=== PATIENT | female | born 1950 | race Hispanic/Latino ===

== ENCOUNTER → 2017-10-29 | Outpatient (CLI) | payer OTHER | LOC: OIH 15:35 | PROVIDERS: ATTEND Family Medicine | DX: M25.521 Pain in right elbow (principal); Z91.81 History of falling | CPT/HCPCS: 73070 ==

== ENCOUNTER → 2018-07-15 | Outpatient (CLI) | payer OTHER | END | disposition home or self-care (01) | LOC: OIH 08:18 | PROVIDERS: ATTEND Family Medicine | DX: I10 Essential (primary) hypertension (principal) | CPT/HCPCS: 71046 ==

== ENCOUNTER → 2019-04-27 | Outpatient (CLI) | payer OTHER | END | disposition home or self-care (01) | LOC: RAH 08:55 | PROVIDERS: ATTEND Family Medicine | DX: N28.1 Cyst of kidney, acquired (principal) | CPT/HCPCS: 76700 ==

== ENCOUNTER → 2019-05-25 | Outpatient (CLI) | payer OTHER ==
[~2019-05-25] MED LIST: IOHEXOL-350 75 ML VIAL IV ONE
== END | disposition home or self-care (01) ==
LOC: RAH 08:06
PROVIDERS: ATTEND Family Medicine
DX: N28.1 Cyst of kidney, acquired (principal); N28.89 Other specified disorders of kidney and ureter; K59.00 Constipation, unspecified; M47.815 Spondylosis without myelopathy or radiculopathy, thoracolumbar region
CPT/HCPCS: 74170; Q9967

== ENCOUNTER → 2020-01-25 | Outpatient (CLI) | payer OTHER | END | disposition home or self-care (01) | LOC: RAH 10:43 | PROVIDERS: ATTEND Family Medicine | DX: I70.202 Unspecified atherosclerosis of native arteries of extremities, left leg (principal) | CPT/HCPCS: 93925 ==

== ENCOUNTER → 2020-02-15 | Outpatient (CLI) | payer OTHER | END | disposition home or self-care (01) | LOC: RAH 10:26 | PROVIDERS: ATTEND Internal Medicine Gastroenterology | DX: R10.13 Epigastric pain (principal); R11.0 Nausea | CPT/HCPCS: 78264; A9541 ==

== ENCOUNTER → 2020-07-28 | Outpatient (CLI) | payer OTHER, MEDICARE ==
[~2020-07-28] MED LIST changes: +IOHEXOL-350 50ML VIAL IV ONE; -IOHEXOL-350 75 ML VIAL IV ONE
== END | disposition home or self-care (01) ==
LOC: RAH 10:07
PROVIDERS: ATTEND Family Medicine
DX: G31.89 Other specified degenerative diseases of nervous system (principal); I70.0 Atherosclerosis of aorta; M51.35 Other intervertebral disc degeneration, thoracolumbar region
CPT/HCPCS: 70470; 71046; Q9967

== ENCOUNTER 2021-10-09 05:48 | Observation (INO) | payer OTHER, MEDICARE ==
[2021-10-05 09:20] VITALS: BP 139/77
[2021-10-05 09:40] LABS: BASOPHILS % (AUTO) 0.6 % (0.0-5.0); LYMPHOCYTES % (AUTO) 29.9 % (21.0-51.0); MEAN CORPUSCULAR HEMOGLOBIN 31.8 pg (27.0-33.0); MEAN CORPUSCULAR HGB CONC 32.3 g/dL (32.0-36.0); MEAN CORPUSCULAR VOLUME 98.7 fL (79-99); MONOCYTES % (AUTO) 6.9 % (3.0-13.0); NEUTROPHILS % (AUTO) 57.2 % (40.0-77.0); PLATELET COUNT (AUTO) 185 K/uL (130-400); RED BLOOD CELL COUNT(AUTO) 4.46 MIL/uL (4.00-5.50); RED CELL DISTRIBUTION WIDTH 13.3 % (11.0-15.5)
[2021-10-05 09:46] LABS: CREATININE 0.7 mg/dL (0.5-1.5); POTASSIUM 4.3 mmol/L (3.5-5.1)
[2021-10-05 09:50] LABS: INR 1.06 (0.85-1.15); PROTHROMBIN TIME 11.5 SEC (9.6-11.6)
[2021-10-05 10:02] LABS: APPEARANCE,URINE CLEAR (CLEAR); BILIRUBIN,URINE NEGATIVE (NEGATIVE); COLOR,URINE YELLOW (YELLOW); GLUCOSE, URINE (UA) NEGATIVE (NEGATIVE); KETONES,URINE NEGATIVE (NEGATIVE); LEUKOCYTE ESTERASE ,URINE TRACE (NEGATIVE); NITRATE,URINE NEGATIVE (NEGATIVE); OCCULT BLOOD,URINE NEGATIVE (NEGATIVE); PH,URINE 5.5 (5.0-8.0); PROTEIN,URINE NEGATIVE (NEGATIVE); UROBILINOGEN,URINE 0.2 mg/dL (0.2-1.0)
[2021-10-05 10:06] LABS: BACTERIA,URINE Rare /HPF (None Seen); RBC,URINE 0-1 /HPF (0-1); WBC,URINE None Seen /HPF (0-1)
[2021-10-05 10:07] LABS: SQUAMOUS EPITHELIAL CELL,UR Few /HPF (0-2)
[2021-10-09] VITALS (23 sets, daily range): BP systolic 98–174; BP diastolic 55–92
[~2021-10-09] VITALS: Ht 149.9 cm; Wt 93.4 kg
[~2021-10-09 05:48] MED LIST changes: +ALBU8.5H8 IH; +BUTA-256 PO; +DICY20TA3 PO; +ESOM40CA54 PO; +FAMO20TA8 PO; +GABA-529 PO; +HYDR-4068 PO; -IOHEXOL-350 50ML VIAL IV ONE; +LORA0.5T83 PO; +LOSA50TA64 PO; +MECL-160 PO; +MELO7.5T12 PO; +MIRT-92 PO; +QUET50TA24 PO; +SUCR1TAB2 PO; +VENL-191 PO
[2021-10-09] MEDS ORDERED: LACTATED RINGERS 1000ML 1,000 ML IV ONE (06:21)
[2021-10-09] MEDS: CEFAZOLIN SODIUM 1 GM VIAL ONE ×2 (07:02→09:00)
[2021-10-09] MEDS ORDERED: EPHEDRINE SULFATE 50 MG/ML AMPULE ONE (07:38)
[2021-10-09] MEDS ORDERED: ONDANSETRON 4MG INJ ONE (07:38)
[2021-10-09] MEDS ORDERED: ROCURONIUM 10MG/1ML SYR 10 MG/ML ML ONE (07:39)
[2021-10-09] MEDS ORDERED: PROPOFOL 10 MG/ML 20ML VIAL IV ONE (07:39)
[2021-10-09] MEDS ORDERED: FENTANYL CITRATE PF 50 MCG/1 ML 5ML AMP IV ONE (07:41)
[2021-10-09] MEDS ORDERED: PHENYLEPHRINE HCL 10 MG/ML 1ML VIAL IV ONE (07:44)
[2021-10-09] MEDS ORDERED: TRANEXAMIC ACID 1000MG/10ML ONE ×2 (08:28→12:16)
[2021-10-09] MEDS ORDERED: CEFAZOLIN SODIUM 1 GM VIAL ONE (08:29)
[2021-10-09] MEDS ORDERED: FAMOTIDINE 20MG VIAL IV ONE (08:31)
[2021-10-09] MEDS ORDERED: NEOSTIGMINE 5MG/5ML SYR IV ONE (09:56)
[2021-10-09] MEDS ORDERED: GLYCOPYRROLATE 1 MG/5 ML SYRINGE ONE (09:56)
[2021-10-09] MEDS ORDERED: HYDRALAZINE 20MG/ML VIAL IV SCH (11:00)
[2021-10-09] MEDS: ACETAMINOPHEN 500 MG TABLET PO SCH ×2 (11:30→20:12)
[2021-10-09] MEDS ORDERED: TEMAZEPAM 15 MG CAPSULE PO PRN (11:30)
[2021-10-09] MEDS ORDERED: CALCIUM CARB 500MG PO PRN (11:30)
[2021-10-09] MEDS ORDERED: LIDOCAINE HCL-MPF 1% 2ML VIAL IV PRN (11:30)
[2021-10-09] MEDS ORDERED: DiphenhydrAMINE HCL 50 MG/ML VIAL IVP PRN (11:30)
[2021-10-09] MEDS ORDERED: POTASSIUM CHLORIDE 20MEQ/100ML 100 ML IV PRN (11:30)
[2021-10-09] MEDS ORDERED: ONDANSETRON 4MG INJ IVP PRN (11:30)
[2021-10-09] MEDS ORDERED: FERROUS FUMARATE 324 MG TABLET PO PRN (11:30)
[2021-10-09] MEDS ORDERED: POTASSIUM CHLORIDE 10% ELIXIR 20 MEQ/15 ML UDCUP PO PRN (11:30)
[2021-10-09] MEDS: 0.9%NACL 1000ML 1,000 ML IV SCH ×2 (11:30→21:30)
[2021-10-09] MEDS ORDERED: TRAMADOL HCL 50 MG TABLET PO PRN (11:30)
[2021-10-09] MEDS ORDERED: SUGAMMADEX SODIUM 200 MG/2 ML VIAL IV ONE (12:05)
[2021-10-09] MEDS ORDERED: FENTANYL CITRATE PF 50 MCG/1 ML 2ML VIAL ONE (12:05)
[2021-10-09] MEDS ORDERED: MORPHINE 2 MG SYG ONE (12:34)
[2021-10-09] MEDS ORDERED: IPRATROPIUM/ALBUTEROL SULFATE 3 ML SOLUTION IH ONE (12:35)
[2021-10-09] MEDS ORDERED: HYDROMORPHONE 1 MG INJ ONE (12:42)
[2021-10-09] MEDS ORDERED: ROPIVACAINE 0.5% 5MG/ML 30ML IJ ONE (12:55)
[2021-10-09] MEDS ORDERED: DEXAMETHASONE SOD PHOSPHATE 10MG/ML 1ML VIAL ONE (12:57)
[2021-10-09] MEDS: DICYCLOMINE HCL 20 MG TAB PO SCH ×2 (14:00→20:11)
[2021-10-09] MEDS ORDERED: LORAZEPAM 0.5 MG TABLET PO PRN (14:00)
[2021-10-09] MEDS ORDERED: MECLIZINE HCL 25 MG TABLET PO PRN (14:00)
[2021-10-09] MEDS ORDERED: ALBUTEROL INHALER 90MCG/INH IH PRN (14:30)
[2021-10-09] MEDS: CEFAZOLIN SODIUM 1 GM VIAL IVP SCH (16:14)
[2021-10-09] MEDS: OXYCODONE HCL 5 MG TAB PO PRN (18:02)
[2021-10-09] MEDS: FAMOTIDINE 20MG TAB PO SCH (20:11)
[2021-10-09] MEDS: MIRTAZAPINE 15 MG TABLET PO SCH (20:11)
[2021-10-09] MEDS: SUCRALFATE 1 GM TABLET PO SCH (20:11)
[2021-10-09] MEDS: QUETIAPINE FUMARATE 25 MG TAB PO SCH (20:11)
[2021-10-09] MEDS: CELECOXIB 200 MG CAP PO SCH (20:12)
[2021-10-09] MEDS: ASPIRIN 81 MG EC TAB PO SCH (20:12)
[2021-10-09] MEDS: GABAPENTIN 100 MG CAPSULE PO SCH (20:12)
[2021-10-09] MEDS ORDERED: VENLAFAXINE HCL 75 MG TAB PO SCH (21:00)
[2021-10-10] MEDS: CEFAZOLIN SODIUM 1 GM VIAL IVP SCH (00:06)
[2021-10-10 03:57] LABS: HEMATOCRIT 33.3 % (36-48); MEAN CORPUSCULAR HEMOGLOBIN 32.3 pg (27.0-33.0); MEAN CORPUSCULAR VOLUME 97.7 fL (79-99); RED BLOOD CELL COUNT(AUTO) 3.41 MIL/uL (4.00-5.50); RED CELL DISTRIBUTION WIDTH 13.6 % (11.0-15.5); WHITE BLOOD COUNT (AUTO) 9.2 K/uL (4.8-10.8)
[2021-10-10 04:10] VITALS: BP 115/51
[2021-10-10] MEDS: ACETAMINOPHEN 500 MG TABLET PO SCH ×3 (04:14→20:00)
[2021-10-10] MEDS: 0.9%NACL 1000ML 1,000 ML IV SCH (04:14)
[2021-10-10 04:29] LABS: CREATININE 0.5 mg/dL (0.5-1.5); POTASSIUM 3.6 mmol/L (3.5-5.1)
[2021-10-10 07:15] VITALS: BP 113/66
[2021-10-10] MEDS: OXYCODONE HCL 5 MG TAB PO PRN ×2 (07:54→12:04)
[2021-10-10] MEDS: LOSARTAN 50 MG TABLET PO SCH (08:49)
[2021-10-10] MEDS: DICYCLOMINE HCL 20 MG TAB PO SCH ×3 (08:49→20:02)
[2021-10-10] MEDS: GABAPENTIN 100 MG CAPSULE PO SCH ×2 (08:50→20:02)
[2021-10-10] MEDS: KETOROLAC 15MG/ML VIAL (15MG/ML) IV PRN ×2 (09:11→15:15)
[2021-10-10] MEDS: PANTOPRAZOLE 40 MG TAB DR PO SCH (09:25)
[2021-10-10] MEDS: CELECOXIB 200 MG CAP PO SCH ×2 (09:25→19:59)
[2021-10-10] MEDS: SUCRALFATE 1 GM TABLET PO SCH ×2 (09:25→19:58)
[2021-10-10] MEDS: ASPIRIN 81 MG EC TAB PO SCH ×2 (09:25→19:59)
[2021-10-10] MEDS: POLYETHYLENE GLYCOL 3350 17 GM POWD.PACK PO SCH (09:25)
[2021-10-10 11:20] VITALS: BP 133/76
[2021-10-10 16:05] VITALS: BP 103/49
[2021-10-10] MEDS ORDERED: DICY20TA3 PO (18:11)
[2021-10-10] MEDS ORDERED: VENL-63 PO (18:11)
[2021-10-10] MEDS ORDERED: VENL150T3 PO (18:17)
[2021-10-10] MEDS ORDERED: DICYCLOMINE HCL 20 MG TAB PO PRN (18:30)
[2021-10-10] MEDS: QUETIAPINE FUMARATE 25 MG TAB PO SCH (19:59)
[2021-10-10] MEDS: MIRTAZAPINE 15 MG TABLET PO SCH (19:59)
[2021-10-10] MEDS: FAMOTIDINE 20MG TAB PO SCH (19:59)
[2021-10-10 20:17] VITALS: BP 139/69
[2021-10-11] VITALS (7 sets, daily range): BP systolic 96–155; BP diastolic 49–74
[2021-10-11] MEDS: ACETAMINOPHEN 500 MG TABLET PO SCH ×3 (04:27→21:04)
[2021-10-11] MEDS: OXYCODONE HCL 5 MG TAB PO PRN ×3 (06:44→18:27)
[2021-10-11] MEDS: SUCRALFATE 1 GM TABLET PO SCH ×2 (08:20→20:21)
[2021-10-11] MEDS: PANTOPRAZOLE 40 MG TAB DR PO SCH (08:20)
[2021-10-11] MEDS: POLYETHYLENE GLYCOL 3350 17 GM POWD.PACK PO SCH (08:20)
[2021-10-11] MEDS: DICYCLOMINE HCL 20 MG TAB PO SCH ×3 (08:20→21:00)
[2021-10-11] MEDS: ASPIRIN 81 MG EC TAB PO SCH ×2 (08:20→21:05)
[2021-10-11] MEDS: GABAPENTIN 100 MG CAPSULE PO SCH ×2 (08:20→21:05)
[2021-10-11] MEDS: CELECOXIB 200 MG CAP PO SCH ×2 (08:20→21:04)
[2021-10-11] MEDS: LOSARTAN 50 MG TABLET PO SCH (08:20)
[2021-10-11] MEDS: VENLAFAXINE HCL XR 150 MG CAP PO SCH (08:21)
[2021-10-11] MEDS: KETOROLAC 15MG/ML VIAL (15MG/ML) IV PRN (20:22)
[2021-10-11] MEDS: MIRTAZAPINE 15 MG TABLET PO SCH (21:05)
[2021-10-11] MEDS: FAMOTIDINE 20MG TAB PO SCH (21:05)
[2021-10-11] MEDS: QUETIAPINE FUMARATE 25 MG TAB PO SCH (21:05)
[2021-10-11] MEDS: KCL 20 MEQ ERTAB PO PRN (21:48)
[2021-10-12] MEDS: KCL 20 MEQ ERTAB PO PRN (00:54)
[2021-10-12 04:20] VITALS: BP 152/75
[2021-10-12] MEDS: ACETAMINOPHEN 500 MG TABLET PO SCH ×2 (04:24→11:43)
[2021-10-12] MEDS: OXYCODONE HCL 5 MG TAB PO PRN (06:01)
[2021-10-12 08:00] VITALS: BP 131/69
[2021-10-12] MEDS: GABAPENTIN 100 MG CAPSULE PO SCH (08:23)
[2021-10-12] MEDS: DICYCLOMINE HCL 20 MG TAB PO SCH ×2 (08:23→12:43)
[2021-10-12] MEDS: POLYETHYLENE GLYCOL 3350 17 GM POWD.PACK PO SCH (08:23)
[2021-10-12] MEDS: VENLAFAXINE HCL XR 150 MG CAP PO SCH (08:23)
[2021-10-12] MEDS: PANTOPRAZOLE 40 MG TAB DR PO SCH (08:23)
[2021-10-12] MEDS: CELECOXIB 200 MG CAP PO SCH (08:23)
[2021-10-12] MEDS: SUCRALFATE 1 GM TABLET PO SCH (08:23)
[2021-10-12] MEDS: LOSARTAN 50 MG TABLET PO SCH (08:23)
[2021-10-12] MEDS: ASPIRIN 81 MG EC TAB PO SCH (08:23)
[2021-10-12] MEDS: KETOROLAC 15MG/ML VIAL (15MG/ML) IV PRN (09:06)
[2021-10-12] MEDS ORDERED: BISACODYL 10 MG SUPP.RECT RC PRN (11:30)
[2021-10-12 11:45] VITALS: BP 118/58
[2021-10-12] MEDS ORDERED: HYDR-4068 PO (12:05)
[2021-10-12] MEDS ORDERED: AEC81 PO (12:05)
== END 2021-10-12 13:30 | disposition home health service (06) ==
LOC: DAH 05:48 → DAHIP 05:49 → DAH 05:49 → 4BH 13:36
PROVIDERS: ADMIT Orthopaedic Surgery; ATTEND Orthopaedic Surgery
DX: M17.11 Unilateral primary osteoarthritis, right knee (principal); Z20.822 Contact with and (suspected) exposure to COVID-19; M25.561 Pain in right knee; I10 Essential (primary) hypertension; J44.9 Chronic obstructive pulmonary disease, unspecified; I49.9 Cardiac arrhythmia, unspecified; D64.9 Anemia, unspecified; E66.9 Obesity, unspecified; E78.5 Hyperlipidemia, unspecified; F17.200 Nicotine dependence, unspecified, uncomplicated; Z79.899 Other long term (current) drug therapy; Z98.890 Other specified postprocedural states; Z79.82 Long term (current) use of aspirin; Z68.41 Body mass index [BMI] 40.0-44.9, adult
CPT/HCPCS: 36415; 64447; 76942; 80048; 81001; 85025; 85027; 85610; 87077; 87088; 87186; 87635; 87641; 94640; 96374; 96375; 96376; 97039; C9803; G0378; J0690; J1100; J1170; J1885; J2370; J2405; J2704; J2710; J2795; J3010; J3490; J7030; J7120

== ENCOUNTER → 2021-11-28 | Outpatient (CLI) | payer OTHER, MEDICARE ==
[~2021-11-28] MED LIST changes: +AEC81 PO; -BUTA-256 PO; -VENL-191 PO; +VENL150T3 PO
== END ==
LOC: RAH 10:29
PROVIDERS: ATTEND Family Medicine
DX: R10.2 Pelvic and perineal pain (principal); M25.551 Pain in right hip
CPT/HCPCS: 72190; 73502

== ENCOUNTER → 2022-03-16 | Outpatient (CLI) | payer OTHER, MEDICARE ==
[~2022-03-16] VITALS: Ht 149.9 cm; Wt 93.3 kg
[2022-03-16 11:16] VITALS: BP 198/88
[2022-03-16 11:21] LABS: BASOPHILS % (AUTO) 0.5 % (0.0-5.0); EOSINOPHILS % (AUTO) 4.4 % (0.0-8.0); HEMATOCRIT 40.5 % (36-48); LYMPHOCYTES % (AUTO) 36.7 % (21.0-51.0); MEAN CORPUSCULAR HEMOGLOBIN 32.9 pg (27.0-33.0); MEAN CORPUSCULAR HGB CONC 33.6 g/dL (32.0-36.0); MEAN CORPUSCULAR VOLUME 97.8 fL (79-99); MONOCYTES % (AUTO) 6.2 % (3.0-13.0); PLATELET COUNT (AUTO) 164 K/uL (130-400); RED BLOOD CELL COUNT(AUTO) 4.14 MIL/uL (4.00-5.50); RED CELL DISTRIBUTION WIDTH 14.6 % (11.0-15.5); WHITE BLOOD COUNT (AUTO) 6.1 K/uL (4.8-10.8)
[2022-03-16 11:24] LABS: APPEARANCE,URINE CLEAR (CLEAR); BILIRUBIN,URINE NEGATIVE (NEGATIVE); COLOR,URINE YELLOW (YELLOW); GLUCOSE, URINE (UA) NEGATIVE (NEGATIVE); KETONES,URINE NEGATIVE (NEGATIVE); LEUKOCYTE ESTERASE ,URINE NEGATIVE (NEGATIVE); NITRATE,URINE NEGATIVE (NEGATIVE); OCCULT BLOOD,URINE NEGATIVE (NEGATIVE); PH,URINE 5.5 (5.0-8.0); PROTEIN,URINE NEGATIVE (NEGATIVE)
[2022-03-16 11:33] LABS: ALBUMIN 3.3 g/dL (3.5-5.0); CREATININE 0.6 mg/dL (0.5-1.5); CRP QUANTITATIVE 14.5 mg/L (0.00-9.0); INR 1.05 (0.85-1.15); POTASSIUM 3.9 mmol/L (3.5-5.1); PROTHROMBIN TIME 11.4 SEC (9.6-11.6)
== END | disposition home or self-care (01) ==
LOC: EDSTATUS 08:00 → DAH 10:00
PROVIDERS: ATTEND Student in an Organized Health Care Education/Training Program
DX: Z01.818 Encounter for other preprocedural examination (principal); M16.11 Unilateral primary osteoarthritis, right hip; M25.551 Pain in right hip; G89.29 Other chronic pain; Z79.01 Long term (current) use of anticoagulants; Z79.899 Other long term (current) drug therapy
CPT/HCPCS: 36415; 80048; 81003; 82040; 84134; 85025; 85610; 85730; 86140; 87088; 87426; 87641; 93005

== ENCOUNTER 2022-04-09 07:26 | Observation (INO) | payer OTHER, MEDICARE ==
[2022-04-06 10:33] LABS: APPEARANCE,URINE SL CLOUDY (CLEAR); BILIRUBIN,URINE NEGATIVE (NEGATIVE); COLOR,URINE YELLOW (YELLOW); GLUCOSE, URINE (UA) NEGATIVE (NEGATIVE); KETONES,URINE NEGATIVE (NEGATIVE); LEUKOCYTE ESTERASE ,URINE NEGATIVE (NEGATIVE); NITRATE,URINE NEGATIVE (NEGATIVE); OCCULT BLOOD,URINE NEGATIVE (NEGATIVE); PH,URINE 5.5 (5.0-8.0); PROTEIN,URINE NEGATIVE (NEGATIVE); UROBILINOGEN,URINE 0.2 mg/dL (0.2-1.0)
[2022-04-06 10:43] LABS: BASOPHILS % (AUTO) 0.7 % (0.0-5.0); EOSINOPHILS % (AUTO) 5.3 % (0.0-8.0); HEMATOCRIT 40.5 % (36-48); LYMPHOCYTES % (AUTO) 32.6 % (21.0-51.0); MEAN CORPUSCULAR HEMOGLOBIN 32.7 pg (27.0-33.0); MEAN CORPUSCULAR HGB CONC 33.6 g/dL (32.0-36.0); MEAN CORPUSCULAR VOLUME 97.4 fL (79-99); MONOCYTES % (AUTO) 9.8 % (3.0-13.0); NEUTROPHILS % (AUTO) 51.2 % (40.0-77.0); PLATELET COUNT (AUTO) 177 K/uL (130-400); RED BLOOD CELL COUNT(AUTO) 4.16 MIL/uL (4.00-5.50); RED CELL DISTRIBUTION WIDTH 14.7 % (11.0-15.5); WHITE BLOOD COUNT (AUTO) 5.6 K/uL (4.8-10.8)
[2022-04-06 10:51] LABS: ALBUMIN 3.3 g/dL (3.5-5.0); CREATININE 0.6 mg/dL (0.5-1.5); CRP QUANTITATIVE 11.8 mg/L (0.00-9.0)
[2022-04-06 10:54] LABS: INR 1.07 (0.85-1.15); PROTHROMBIN TIME 11.6 SEC (9.6-11.6)
[2022-04-06 10:55] LABS: PARTIAL THROMBOPLASTIN TIME 37.6 SEC (26.3-35.5)
[2022-04-06 12:02] VITALS: BP 191/89
[2022-04-09] VITALS (26 sets, daily range): BP systolic 91–160; BP diastolic 43–85
[~2022-04-09] VITALS: Ht 149.9 cm; Wt 99.8 kg
[~2022-04-09 07:26] MED LIST changes: -AEC81 PO; -DICY20TA3 PO; -FAMO20TA8 PO; -GABA-529 PO; -HYDR-4068 PO; -MECL-160 PO; -MELO7.5T12 PO; -MIRT-92 PO; +ONDA4TAB10 PO
[2022-04-09] MEDS ORDERED: LACTATED RINGERS 1000ML 1,000 ML IV ONE (08:52)
[2022-04-09] MEDS: CEFAZOLIN SODIUM 1 GM VIAL IVP SCH ×3 (09:30→21:03)
[2022-04-09] MEDS ORDERED: PROPOFOL 10 MG/ML 20ML VIAL IV ONE ×2 (11:52→13:09)
[2022-04-09] MEDS ORDERED: ROCURONIUM 10MG/1ML SYR 10 MG/ML ML ONE (11:52)
[2022-04-09] MEDS ORDERED: GLYCOPYRROLATE 1 MG/5 ML SYRINGE ONE (11:52)
[2022-04-09] MEDS ORDERED: FENTANYL CITRATE PF 50 MCG/1 ML 2ML VIAL ONE ×2 (11:53→12:43)
[2022-04-09] MEDS ORDERED: ROPIVACAINE 0.5% 5MG/ML 30ML IJ ONE (11:59)
[2022-04-09] MEDS ORDERED: FENTANYL CITRATE PF 50 MCG/1 ML 5ML AMP IV ONE ×2 (12:52→13:43)
[2022-04-09] MEDS ORDERED: BUPIVACAINE/EPI/PF 0.5% 30ML VIAL IJ ONE (12:57)
[2022-04-09] MEDS ORDERED: TRANEXAMIC ACID 1000MG/10ML ONE (13:20)
[2022-04-09] MEDS ORDERED: HYDROMORPHONE 1 MG INJ ONE (13:48)
[2022-04-09] MEDS ORDERED: ONDANSETRON 4MG INJ ONE (14:16)
[2022-04-09] MEDS ORDERED: NEOSTIGMINE 5MG/5ML SYR IV ONE (14:51)
[2022-04-09] MEDS: 0.9%NACL 1000ML 1,000 ML IV SCH (15:00)
[2022-04-09] MEDS ORDERED: POTASSIUM CHLORIDE 20MEQ/100ML 100 ML IV PRN (15:00)
[2022-04-09] MEDS ORDERED: POTASSIUM CHLORIDE 10% ELIXIR 20 MEQ/15 ML UDCUP PO PRN (15:00)
[2022-04-09] MEDS: PHARMACY COMMUNICATION MISC SCH ×8 (15:00→22:00)
[2022-04-09] MEDS ORDERED: LIDOCAINE HCL-MPF 1% 2ML VIAL IV PRN (15:00)
[2022-04-09] MEDS ORDERED: HYDROCODONE/ACETAMINOPHEN 5/325 MG TAB PO PRN (15:00)
[2022-04-09] MEDS ORDERED: CALCIUM CARB 500MG PO PRN (15:00)
[2022-04-09] MEDS ORDERED: CYCLOBENZAPRINE HCL 10 MG TABLET PO PRN (15:00)
[2022-04-09] MEDS ORDERED: FERROUS FUMARATE 324 MG TABLET PO PRN (15:00)
[2022-04-09] MEDS ORDERED: NYSTATIN-TRIAMCINOLONE CREAM 15 GM TP PRN (15:00)
[2022-04-09] MEDS ORDERED: KCL 20 MEQ ERTAB PO PRN (15:00)
[2022-04-09] MEDS ORDERED: MEPERIDINE-PF 25 MG/ML SYG ONE (15:49)
[2022-04-09] MEDS: ONDANSETRON 4MG INJ IVP PRN ×3 (16:22→21:02)
[2022-04-09 16:25] LABS: HEMATOCRIT 30.1 % (36-48)
[2022-04-09] MEDS ORDERED: KETOROLAC 15MG/ML VIAL (15MG/ML) ONE (16:28)
[2022-04-09] MEDS ORDERED: ONDANSETRON ODT 4MG TAB PO PRN (18:00)
[2022-04-09] MEDS ORDERED: LORAZEPAM 0.5 MG TABLET PO SCH (21:00)
[2022-04-09] MEDS: QUETIAPINE FUMARATE 100 MG TAB PO SCH (21:01)
[2022-04-09] MEDS: SUCRALFATE 1 GM TABLET PO SCH (21:01)
[2022-04-09] MEDS: GABAPENTIN 100 MG CAPSULE PO SCH (21:01)
[2022-04-09] MEDS: HYDROCODONE/ACETAMINOPHEN 5/325 MG TAB PO PRN (21:02)
[2022-04-09] MEDS: DOCUSATE SODIUM 100 MG CAP PO SCH (21:02)
[2022-04-10] MEDS: 0.9%NACL 1000ML 1,000 ML IV SCH ×2 (02:36→10:25)
[2022-04-10] MEDS: CEFAZOLIN SODIUM 1 GM VIAL IVP SCH (04:30)
[2022-04-10] MEDS: HYDROCODONE/ACETAMINOPHEN 5/325 MG TAB PO PRN (04:30)
[2022-04-10 04:35] VITALS: BP 124/57
[2022-04-10 04:42] LABS: HEMATOCRIT 35.1 % (36-48); MEAN CORPUSCULAR HEMOGLOBIN 32.9 pg (27.0-33.0); MEAN CORPUSCULAR HGB CONC 34.5 g/dL (32.0-36.0); MEAN CORPUSCULAR VOLUME 95.4 fL (79-99); RED BLOOD CELL COUNT(AUTO) 3.68 MIL/uL (4.00-5.50); RED CELL DISTRIBUTION WIDTH 15.3 % (11.0-15.5); WHITE BLOOD COUNT (AUTO) 10.9 K/uL (4.8-10.8)
[2022-04-10 04:50] LABS: CREATININE 0.7 mg/dL (0.5-1.5)
[2022-04-10 07:30] VITALS: BP 88/40
[2022-04-10] MEDS: LOSARTAN 50 MG TABLET PO SCH (09:00)
[2022-04-10] MEDS: VENLAFAXINE HCL 300 MG PO SCH (09:00)
[2022-04-10] MEDS: DOCUSATE SODIUM 100 MG CAP PO SCH ×2 (10:22→20:28)
[2022-04-10] MEDS: PANTOPRAZOLE 40 MG TAB DR PO SCH (10:22)
[2022-04-10] MEDS: SUCRALFATE 1 GM TABLET PO SCH ×2 (10:22→20:27)
[2022-04-10] MEDS: GABAPENTIN 100 MG CAPSULE PO SCH (10:23)
[2022-04-10] MEDS: ASPIRIN 325MG TAB PO SCH (10:23)
[2022-04-10] MEDS: POLYETHYLENE GLYCOL 3350 17 GM POWD.PACK PO SCH (10:24)
[2022-04-10 11:00] VITALS: BP 119/47
[2022-04-10] MEDS: KETOROLAC 15MG/ML VIAL (15MG/ML) IV PRN ×2 (11:52→18:30)
[2022-04-10] MEDS: METOPROLOL TARTRATE 25 MG TAB PO SCH ×2 (13:40→20:28)
[2022-04-10] MEDS ORDERED: NICOTINE 21 MG/ 24 HR PATCH TD SCH (15:30)
[2022-04-10 16:00] VITALS: BP 117/45
[2022-04-10] MEDS: LORAZEPAM 0.5 MG TABLET PO SCH (20:27)
[2022-04-10] MEDS: QUETIAPINE FUMARATE 100 MG TAB PO SCH (20:28)
[2022-04-10 20:56] VITALS: BP 135/57
[2022-04-10] MEDS: TRAMADOL HCL 50 MG TABLET PO PRN (23:41)
[2022-04-11 00:10] VITALS: BP 99/78
[2022-04-11 04:49] VITALS: BP 129/81
[2022-04-11] MEDS: KETOROLAC 15MG/ML VIAL (15MG/ML) IV PRN (06:25)
[2022-04-11 07:30] VITALS: BP 125/62
[2022-04-11] MEDS: TRAMADOL HCL 50 MG TABLET PO PRN ×2 (08:20→13:24)
[2022-04-11] MEDS: VENLAFAXINE HCL 300 MG PO SCH (09:00)
[2022-04-11] MEDS ORDERED: NICOTINE 21 MG/ 24 HR PATCH TD SCH (09:00)
[2022-04-11] MEDS: SUCRALFATE 1 GM TABLET PO SCH (09:46)
[2022-04-11] MEDS: ASPIRIN 325MG TAB PO SCH (09:46)
[2022-04-11] MEDS: PANTOPRAZOLE 40 MG TAB DR PO SCH (09:46)
[2022-04-11] MEDS: METOPROLOL TARTRATE 25 MG TAB PO SCH (09:46)
[2022-04-11] MEDS: LORAZEPAM 0.5 MG TABLET PO SCH (09:46)
[2022-04-11] MEDS: LOSARTAN 50 MG TABLET PO SCH (09:46)
[2022-04-11] MEDS: DOCUSATE SODIUM 100 MG CAP PO SCH (09:46)
[2022-04-11] MEDS: POLYETHYLENE GLYCOL 3350 17 GM POWD.PACK PO SCH (09:47)
[2022-04-11 11:20] VITALS: BP 124/61
[2022-04-11] MEDS ORDERED: HYDR-4060 PO (17:07)
[2022-04-11] MEDS ORDERED: [UNRECOGNIZED DRUG - CODE] TP (17:07)
[2022-04-11] MEDS ORDERED: ASPI-1026 PO (17:07)
[2022-04-11] MEDS ORDERED: CYCL-309 PO (17:07)
[2022-04-12] MEDS ORDERED: BISACODYL 10 MG SUPP.RECT RC PRN (15:00)
== END 2022-04-11 19:58 ==
LOC: DAH 07:26 → INTOOBSV 07:27 → DAHIP 07:27 → 4DH 17:22
PROVIDERS: ADMIT Student in an Organized Health Care Education/Training Program; ATTEND Student in an Organized Health Care Education/Training Program
DX: M16.11 Unilateral primary osteoarthritis, right hip (principal); Z20.822 Contact with and (suspected) exposure to COVID-19; E87.70 Fluid overload, unspecified; G89.29 Other chronic pain; M25.551 Pain in right hip; M87.051 Idiopathic aseptic necrosis of right femur; R26.89 Other abnormalities of gait and mobility; I10 Essential (primary) hypertension; E66.01 Morbid (severe) obesity due to excess calories; E78.5 Hyperlipidemia, unspecified; F17.200 Nicotine dependence, unspecified, uncomplicated; R09.02 Hypoxemia; Z63.4 Disappearance and death of family member; Z90.710 Acquired absence of both cervix and uterus; Z96.651 Presence of right artificial knee joint; Z79.82 Long term (current) use of aspirin; Z68.41 Body mass index [BMI] 40.0-44.9, adult
CPT/HCPCS: 82040; 80048 ×2; 85025; 85610; 85730; 87088; 84134; 86140; 87426; 81003; 36415 ×3; 87641; 27130; 96374; 36430; 85014; 85018; 86850; 86900; 86901; 86923; 73502; 73503; 97039 ×3; 96376 ×2; 96375; 83880; 85027; 71045; 97161; 93005; 97116; 97530 ×2; A4221; A4663; C1776; P9016 ×2; J7120; J3010 ×4; J0690 ×2; J1170; J3490 ×3; J2710; J2704 ×2; J2405 ×3; J2175; J2795; J1885 ×4; A4649 ×3; A6219; G0168; C1713; A6255; A5120; A4215; A4223; A4222; J7030; G0378 ×32

== ENCOUNTER 2023-06-28 06:00 | Observation (INO) | payer OTHER, MEDICARE ==
[2023-06-26 09:34] VITALS: BP 160/90; PULSE 90; RESP 18
[2023-06-26 09:34] LABS: BASOPHILS # (AUTO) 0.09 K/uL (0.00-0.20); BASOPHILS % (AUTO) 0.5 % (0.0-5.0); EOSINOPHILS # (AUTO) 0.04 K/uL (0.00-0.70); EOSINOPHILS % (AUTO) 0.2 % (0.0-8.0); HEMATOCRIT 42.9 % (36-48); IMMATURE GRANULOCYTE ABSOLUTE 0.77 K/uL (0-1); LYMPHOCYTES % (AUTO) 11.9 % (21.0-51.0); MEAN CORPUSCULAR HEMOGLOBIN 32.5 pg (27.0-33.0); MEAN CORPUSCULAR HGB CONC 33.1 g/dL (32.0-36.0); MEAN CORPUSCULAR VOLUME 98.2 fL (79-99); MONOCYTES # (AUTO) 1.3 K/uL (0.1-1.0); MONOCYTES % (AUTO) 7.8 % (3.0-13.0); NEUTROPHILS # (AUTO) 12.6 K/uL (1.8-7.7); PLATELET COUNT (AUTO) 242 K/uL (130-400); RED BLOOD CELL COUNT(AUTO) 4.37 MIL/uL (4.00-5.50); RED CELL DISTRIBUTION WIDTH 15.1 % (11.0-15.5); WHITE BLOOD COUNT (AUTO) 16.7 K/uL (4.8-10.8)
[2023-06-26 09:37] LABS: APPEARANCE,URINE CLEAR (CLEAR); BILIRUBIN,URINE NEGATIVE (NEGATIVE); COLOR,URINE LIGHT-YELLOW (YELLOW); GLUCOSE, URINE (UA) NEGATIVE (NEGATIVE); KETONES,URINE NEGATIVE (NEGATIVE); LEUKOCYTE ESTERASE ,URINE NEGATIVE Leu/uL (NEGATIVE); NITRATE,URINE NEGATIVE (NEGATIVE); OCCULT BLOOD,URINE NEGATIVE (NEGATIVE); PROTEIN,URINE NEGATIVE (NEGATIVE); UROBILINOGEN,URINE 0.2 mg/dL (0.2-1.0)
[2023-06-26 09:40] LABS: ADD UA MICROSCOPIC NO
[2023-06-26 09:48] LABS: INR 0.94 (0.85-1.15); PROTHROMBIN TIME 10.9 SEC (9.6-11.6)
[2023-06-26 09:49] LABS: PARTIAL THROMBOPLASTIN TIME 27.6 SEC (26.3-35.5)
[2023-06-26 09:50] LABS: ALBUMIN 2.8 g/dL (3.5-5.0); CREATININE 0.8 mg/dL (0.5-1.5); POTASSIUM 4.5 mmol/L (3.5-5.1)
[~2023-06-28] VITALS: Ht 149.9 cm; Wt 46.7 kg
[2023-06-28] VITALS (19 sets, daily range): BP systolic 138–176; BP diastolic 74–94; PULSE 69–80; RESP 15–20; O2SAT 95–98
[~2023-06-28 06:00] MED LIST changes: +ALBU6.7H14 IH; -ALBU8.5H8 IH; +BUDE10.2 IH; +CARI1.5C PO; +DICY20TA3 PO; +FURO20TA4 PO; +LORA-192 PO; -LORA0.5T83 PO; +LOSA100T59 PO; -LOSA50TA64 PO; +METO25TA6 PO; -ONDA4TAB10 PO; +OZEMPIC SQ
[2023-06-28] MEDS ORDERED: CEFAZOLIN SODIUM 1 GM VIAL ONE ×2 (06:23→14:35)
[2023-06-28] MEDS ORDERED: 0.9%NACL 1000ML 1,000 ML IV ONE (06:24)
[2023-06-28] MEDS ORDERED: CEFAZOLIN SODIUM 2 GM VIAL ONE (06:24)
[2023-06-28] MEDS ORDERED: SUCCINYLCHOLINE 200MG/10ML SYR ONE (06:56)
[2023-06-28] MEDS ORDERED: LIDOCAINE PF 100MG/5ML (2%) SYRINGE 5ML ONE (06:56)
[2023-06-28] MEDS ORDERED: ONDANSETRON 4MG INJ ONE (06:57)
[2023-06-28] MEDS ORDERED: PROPOFOL 10 MG/ML 20ML VIAL IV ONE (06:57)
[2023-06-28] MEDS ORDERED: GLYCOPYRROLATE 1 MG/5 ML SYRINGE ONE (06:57)
[2023-06-28] MEDS ORDERED: DEXAMETHASONE SOD PHOSPHATE 10MG/ML 1ML VIAL ONE (06:57)
[2023-06-28] MEDS ORDERED: MIDAZOLAM HCL 1 MG/ML 2ML VIAL ONE (06:57)
[2023-06-28] MEDS ORDERED: FENTANYL CITRATE PF 50 MCG/1 ML 2ML VIAL ONE ×2 (06:58→08:54)
[2023-06-28] MEDS ORDERED: ROCURONIUM 10MG/1ML SYR 10 MG/ML ML ONE ×3 (06:58→11:01)
[2023-06-28] MEDS ORDERED: ROPIVACAINE 0.5% 5MG/ML 30ML ONE (07:03)
[2023-06-28] MEDS ORDERED: ALBUMIN (HUMAN) 5% 250 ML IV ONE ×2 (07:27→11:25)
[2023-06-28] MEDS ORDERED: NEOSTIGMINE METHYLSULFATE 1MG/ML IV ONE (08:04)
[2023-06-28] MEDS ORDERED: CEFAZOLIN SODIUM 2 GM VIAL IVPB ONE (08:20)
[2023-06-28] MEDS ORDERED: PHENYLEPHRINE HCL 10 MG/ML 1ML VIAL IV ONE (12:01)
[2023-06-28] MEDS ORDERED: HYDROMORPHONE 1 MG INJ ONE (14:15)
[2023-06-28] MEDS ORDERED: HYDRALAZINE 20MG/ML VIAL ONE (15:25)
[2023-06-28] MEDS: 0.9%NACL 1000ML 1,000 ML IV SCH (15:30)
[2023-06-28] MEDS ORDERED: HYDROCODONE/ACETAMINOPHEN 5/325 MG TAB PO PRN (15:30)
[2023-06-28] MEDS ORDERED: POTASSIUM CHLORIDE 10% ELIXIR 20 MEQ/15 ML UDCUP PO PRN (15:30)
[2023-06-28] MEDS ORDERED: KCL 20 MEQ ERTAB PO PRN (15:30)
[2023-06-28] MEDS ORDERED: FERROUS FUMARATE 324 MG TABLET PO PRN (15:30)
[2023-06-28] MEDS ORDERED: TEMAZEPAM 15 MG CAPSULE PO PRN (15:30)
[2023-06-28] MEDS ORDERED: ONDANSETRON 4MG INJ IVP PRN (15:30)
[2023-06-28] MEDS ORDERED: KETOROLAC 15MG/ML VIAL (15MG/ML) IV PRN (15:30)
[2023-06-28] MEDS ORDERED: CYCLOBENZAPRINE HCL 10 MG TABLET PO PRN (15:30)
[2023-06-28] MEDS ORDERED: POTASSIUM CHLORIDE 20MEQ/100ML 100 ML IV PRN (15:30)
[2023-06-28] MEDS ORDERED: CALCIUM CARB 500MG PO PRN (15:30)
[2023-06-28] MEDS ORDERED: KETOROLAC 15MG/ML VIAL (15MG/ML) ONE (15:36)
[2023-06-28] MEDS: KETOROLAC 15MG/ML VIAL (15MG/ML) IV SCH ×2 (15:47→22:36)
[2023-06-28] MEDS: INSULIN HUMULIN R 100 UNIT/ML 3ML SQ SCH ×2 (16:30→20:31)
[2023-06-28] MEDS: GABAPENTIN 100 MG CAPSULE PO SCH (19:39)
[2023-06-28] MEDS: FAMOTIDINE 20MG TAB PO SCH (19:39)
[2023-06-28] MEDS: CEFAZOLIN SODIUM 2 GM VIAL IVPB SCH (19:39)
[2023-06-28] MEDS: DOCUSATE SODIUM 100 MG CAP PO SCH (19:39)
[2023-06-29] VITALS: BP 141/77; PULSE 85; RESP 20
[2023-06-29] MEDS: 0.9%NACL 1000ML 1,000 ML IV SCH ×2 (01:01→11:30)
[2023-06-29 04:00] VITALS: BP 150/81; PULSE 90; RESP 20
[2023-06-29 04:02] LABS: HEMATOCRIT 29.8 % (36-48); MEAN CORPUSCULAR HEMOGLOBIN 32.2 pg (27.0-33.0); MEAN CORPUSCULAR HGB CONC 33.2 g/dL (32.0-36.0); MEAN CORPUSCULAR VOLUME 97.1 fL (79-99); RED BLOOD CELL COUNT(AUTO) 3.07 MIL/uL (4.00-5.50); RED CELL DISTRIBUTION WIDTH 15.3 % (11.0-15.5); WHITE BLOOD COUNT (AUTO) 17.1 K/uL (4.8-10.8)
[2023-06-29 04:10] LABS: CREATININE 0.5 mg/dL (0.5-1.5)
[2023-06-29] MEDS: CEFAZOLIN SODIUM 2 GM VIAL IVPB SCH (04:15)
[2023-06-29] MEDS: INSULIN HUMULIN R 100 UNIT/ML 3ML SQ SCH ×2 (05:26→11:30)
[2023-06-29] MEDS: KETOROLAC 15MG/ML VIAL (15MG/ML) IV SCH (07:01)
[2023-06-29 08:00] VITALS: BP 134/81; PULSE 106; RESP 22
[2023-06-29] MEDS ORDERED: POLYETHYLENE GLYCOL 3350 17 GM POWD.PACK PO SCH (09:00)
[2023-06-29] MEDS ORDERED: ASPIRIN 325MG EC TAB PO SCH (09:00)
[2023-06-29] MEDS ORDERED: TAMSULOSIN HCL 0.4 MG CAP.ER.24H PO SCH (09:00)
[2023-06-29 09:45] VITALS: O2SAT 96
[2023-06-29] MEDS: GABAPENTIN 100 MG CAPSULE PO SCH ×2 (09:46→13:29)
[2023-06-29] MEDS: FAMOTIDINE 20MG TAB PO SCH (09:46)
[2023-06-29] MEDS: DOCUSATE SODIUM 100 MG CAP PO SCH (09:46)
[2023-06-29] MEDS ORDERED: HYDR-4060 PO (10:16)
[2023-06-29 11:53] VITALS: BP 156/80; PULSE 93; RESP 20
[2023-07-01] MEDS ORDERED: BISACODYL 10 MG SUPP.RECT RC PRN (15:30)
== END 2023-06-29 14:10 | disposition home or self-care (01) ==
LOC: DAH 06:00 → DAHIP 06:01 → 4DH 16:15
PROVIDERS: ADMIT Student in an Organized Health Care Education/Training Program; ATTEND Student in an Organized Health Care Education/Training Program
DX: M17.12 Unilateral primary osteoarthritis, left knee (principal); G89.18 Other acute postprocedural pain; M25.562 Pain in left knee; J44.9 Chronic obstructive pulmonary disease, unspecified; E11.9 Type 2 diabetes mellitus without complications; K21.9 Gastro-esophageal reflux disease without esophagitis; E66.01 Morbid (severe) obesity due to excess calories; Z96.9 Presence of functional implant, unspecified; Z68.20 Body mass index [BMI] 20.0-20.9, adult; Z79.899 Other long term (current) drug therapy
CPT/HCPCS: 82040; 80048 ×2; 85025; 85610; 85730; 87088; 84134; 86140; 81003; 36415 ×2; 87641; 64447; 20680; 96374; 96376 ×2; 96375; 82948 ×7; 73552; 85027; 73502; 97161; 97116; 97530 ×2; J1815; G0378 ×13; A4663; A4649 ×3; P9045 ×2; J3010 ×2; J0690 ×5; J1170; J0330; J3490; J1100; J7030; J2001; J0360; J2250; J2704; J2405; J2710; J2795; J1885 ×3; J2371; A6223; A6219; A4930; A5120; A4215; A4223; A4222; A4221

== ENCOUNTER 2023-07-08 15:59 | Emergency (ER) | payer OTHER, MEDICARE ==
[~2023-07-08] VITALS: Ht 152.4 cm; Wt 104.3 kg
[~2023-07-08 15:59] MED LIST changes: +HYDR-4060 PO
[2023-07-08 18:38] LABS: BASOPHILS # (AUTO) 0.07 K/uL (0.00-0.20); BASOPHILS % (AUTO) 0.4 % (0.0-5.0); EOSINOPHILS # (AUTO) 0.18 K/uL (0.00-0.70); EOSINOPHILS % (AUTO) 1.1 % (0.0-8.0); HEMATOCRIT 30.6 % (36-48); LYMPHOCYTES # (AUTO) 1.7 K/uL (1.0-4.8); LYMPHOCYTES % (AUTO) 10.3 % (21.0-51.0); MEAN CORPUSCULAR HEMOGLOBIN 32.2 pg (27.0-33.0); MEAN CORPUSCULAR VOLUME 97.5 fL (79-99); MONOCYTES # (AUTO) 0.7 K/uL (0.1-1.0); MONOCYTES % (AUTO) 4.3 % (3.0-13.0); NEUTROPHILS # (AUTO) 13.3 K/uL (1.8-7.7); PLATELET COUNT (AUTO) 185 K/uL (130-400); RED BLOOD CELL COUNT(AUTO) 3.14 MIL/uL (4.00-5.50); RED CELL DISTRIBUTION WIDTH 15.8 % (11.0-15.5); WHITE BLOOD COUNT (AUTO) 16.2 K/uL (4.8-10.8)
[2023-07-08 21:43] VITALS: BP 142/74; PULSE 84; RESP 18; O2SAT 98
== END 2023-07-08 21:42 | disposition home or self-care (01) ==
LOC: EDH 15:59
DX: R60.9 Edema, unspecified (principal); I10 Essential (primary) hypertension; J44.9 Chronic obstructive pulmonary disease, unspecified; F32.A Depression, unspecified; F41.9 Anxiety disorder, unspecified; F17.210 Nicotine dependence, cigarettes, uncomplicated; Z79.899 Other long term (current) drug therapy
CPT/HCPCS: 36415; 85025; 93970

== ENCOUNTER → 2023-07-18 | Outpatient (CLI) | payer OTHER, MEDICARE | END | disposition home or self-care (01) | LOC: SHCH 07:34 | PROVIDERS: ATTEND Internal Medicine Cardiovascular Disease | DX: I35.1 Nonrheumatic aortic (valve) insufficiency (principal); I11.0 Hypertensive heart disease with heart failure; I50.20 Unspecified systolic (congestive) heart failure; E78.5 Hyperlipidemia, unspecified; F17.200 Nicotine dependence, unspecified, uncomplicated | CPT/HCPCS: 93306 ==

== ENCOUNTER → 2023-09-12 | Outpatient (CLI) | payer OTHER, MEDICARE | END | disposition home or self-care (01) | LOC: RAH 13:30 | PROVIDERS: ATTEND Urology | DX: N28.1 Cyst of kidney, acquired (principal) | CPT/HCPCS: 76770 ==

== ENCOUNTER 2023-10-02 08:40 | Observation (INO) | payer OTHER, MEDICARE ==
[2023-09-26 10:41] VITALS: PULSE 76; RESP 19
[2023-09-26 10:44] LABS: BASOPHILS # (AUTO) 0.07 K/uL (0.00-0.20); BASOPHILS % (AUTO) 0.6 % (0.0-5.0); EOSINOPHILS # (AUTO) 0.29 K/uL (0.00-0.70); EOSINOPHILS % (AUTO) 2.5 % (0.0-8.0); HEMATOCRIT 37.1 % (36-48); IMMATURE GRANULOCYTE ABSOLUTE 0.13 K/uL (0-1); LYMPHOCYTES # (AUTO) 2.5 K/uL (1.0-4.8); MEAN CORPUSCULAR HEMOGLOBIN 24.7 pg (27.0-33.0); MEAN CORPUSCULAR HGB CONC 29.6 g/dL (32.0-36.0); MEAN CORPUSCULAR VOLUME 83.4 fL (79-99); MONOCYTES # (AUTO) 0.9 K/uL (0.1-1.0); MONOCYTES % (AUTO) 7.5 % (3.0-13.0); NEUTROPHILS # (AUTO) 7.9 K/uL (1.8-7.7); NEUTROPHILS % (AUTO) 67.3 % (40.0-77.0); PLATELET COUNT (AUTO) 228 K/uL (130-400); RED BLOOD CELL COUNT(AUTO) 4.45 MIL/uL (4.00-5.50); RED CELL DISTRIBUTION WIDTH 18.3 % (11.0-15.5); WHITE BLOOD COUNT (AUTO) 11.7 K/uL (4.8-10.8)
[2023-09-26 10:45] LABS: APPEARANCE,URINE CLEAR (CLEAR); BILIRUBIN,URINE NEGATIVE (NEGATIVE); COLOR,URINE YELLOW (YELLOW); GLUCOSE, URINE (UA) NEGATIVE (NEGATIVE); KETONES,URINE NEGATIVE (NEGATIVE); LEUKOCYTE ESTERASE ,URINE NEGATIVE Leu/uL (NEGATIVE); NITRATE,URINE NEGATIVE (NEGATIVE); OCCULT BLOOD,URINE NEGATIVE (NEGATIVE); PH,URINE 6.5 (5.0-8.0); PROTEIN,URINE NEGATIVE (NEGATIVE)
[2023-09-26 10:47] LABS: ADD UA MICROSCOPIC YES
[2023-09-26 10:52] LABS: MUCUS,URINE RARE LPF (None Seen); RBC,URINE 0-1 /HPF (0-1); SQUAMOUS EPITHELIAL CELL,UR RARE /HPF (0-2)
[2023-09-26 10:57] LABS: ALBUMIN 2.7 g/dL (3.5-5.0); CREATININE 0.7 mg/dL (0.5-1.5); INR 0.99 (0.85-1.15); POTASSIUM 3.6 mmol/L (3.5-5.1); PROTHROMBIN TIME 11.5 SEC (9.6-11.6)
[~2023-10-02] VITALS: Ht 149.9 cm; Wt 108.0 kg
[2023-10-02] VITALS (27 sets, daily range): BP systolic 120–151; BP diastolic 62–84; PULSE 81–104; RESP 12–26; O2SAT 96–99
[~2023-10-02 08:40] MED LIST changes: +AEC81 PO; -BUDE10.2 IH; -DICY20TA3 PO; +FLUT1BLS3 IH; -HYDR-4060 PO; -SUCR1TAB2 PO
[2023-10-02] MEDS: LACTATED RINGERS 1000ML 1,000 ML IV ONE (09:55)
[2023-10-02] MEDS: CEFAZOLIN SODIUM 2 GM VIAL ONE (09:55)
[2023-10-02] MEDS ORDERED: ONDANSETRON 4MG INJ ONE (10:32)
[2023-10-02] MEDS ORDERED: DEXAMETHASONE SOD PHOSPHATE 10MG/ML 1ML VIAL ONE (10:32)
[2023-10-02] MEDS ORDERED: LIDOCAINE PF 100MG/5ML (2%) SYRINGE 5ML ONE (10:32)
[2023-10-02] MEDS ORDERED: SUCCINYLCHOLINE CHLORIDE 20 MG/ML 10 ML VIAL ONE (10:32)
[2023-10-02] MEDS ORDERED: GLYCOPYRROLATE 0.2 MG/ML 5 ML VIAL ONE ×2 (10:33→19:40)
[2023-10-02] MEDS ORDERED: ROCURONIUM BROMIDE 10MG/1ML 5ML VL ONE ×2 (10:33→13:54)
[2023-10-02] MEDS ORDERED: PROPOFOL 10 MG/ML 20ML VIAL IV ONE ×2 (10:33→13:29)
[2023-10-02] MEDS ORDERED: NEOSTIGMINE METHYLSULFATE 1MG/ML IV ONE ×2 (10:33→19:41)
[2023-10-02] MEDS ORDERED: MIDAZOLAM HCL 1 MG/ML 2ML VIAL ONE (10:33)
[2023-10-02] MEDS ORDERED: FENTANYL CITRATE PF 50 MCG/1 ML 2ML VIAL ONE ×5 (10:34→19:42)
[2023-10-02] MEDS ORDERED: TRANEXAMIC ACID 1000MG/10ML ONE ×2 (11:28→11:29)
[2023-10-02] MEDS ORDERED: ROPIVACAINE 0.5% 5MG/ML 30ML ONE (11:29)
[2023-10-02] MEDS ORDERED: KETOROLAC 30MG VIAL (30MG/ML) ONE (11:29)
[2023-10-02] MEDS: TRANEXAMIC ACID 1000MG/10ML IV ONE ×2 (13:45→19:15)
[2023-10-02] MEDS: CEFAZOLIN SODIUM 2 GM VIAL IVPB ONE (13:46)
[2023-10-02] MEDS ORDERED: PHENYLEPHRINE HCL 10 MG/ML 1ML VIAL IV ONE (14:34)
[2023-10-02] MEDS: ROPIVACAINE 0.5% 5MG/ML 30ML IJ ONE ×2 (15:26→18:40)
[2023-10-02] MEDS: KETOROLAC 30MG VIAL (30MG/ML) IJ ONE ×2 (15:26→18:40)
[2023-10-02] MEDS: NICARDIPINE 25MG INJ IV ONE (17:55)
[2023-10-02] MEDS ORDERED: CALCIUM CARB 500MG PO PRN (19:30)
[2023-10-02] MEDS ORDERED: POTASSIUM CHLORIDE 10% ELIXIR 20 MEQ/15 ML UDCUP PO PRN (19:30)
[2023-10-02] MEDS ORDERED: KETOROLAC 15MG/ML VIAL (15MG/ML) IV PRN (19:30)
[2023-10-02] MEDS ORDERED: KCL 20 MEQ ERTAB PO PRN (19:30)
[2023-10-02] MEDS: KETOROLAC 15MG/ML VIAL (15MG/ML) IV SCH (19:30)
[2023-10-02] MEDS ORDERED: ONDANSETRON 4MG INJ IVP PRN (19:30)
[2023-10-02] MEDS ORDERED: CYCLOBENZAPRINE HCL 10 MG TABLET PO PRN (19:30)
[2023-10-02] MEDS: 0.9%NACL 1000ML 1,000 ML IV SCH (19:30)
[2023-10-02] MEDS ORDERED: POTASSIUM CHLORIDE 20MEQ/100ML 100 ML IV PRN (19:30)
[2023-10-02] MEDS ORDERED: FERROUS FUMARATE 324 MG TABLET PO PRN (19:30)
[2023-10-02] MEDS: LABETALOL 20MG SYG IV ONE (19:58)
[2023-10-02 20:54] LABS: ABG BASE EXCESS -4.7 mmol/L (-2.0-3.0); ABG OXYGEN SATURATION 99.1 % (95.0-99.0); ABG PCO2 41 mmHg (32-45); ABG PH 7.324 (7.35-7.450); CARBON MONOXIDE 0.3; DEVICE COMMENT CRNA; HHb 0.9; PO2, ARTERIAL BG 243.2 mmHg (83.0-108.0)
[2023-10-02] MEDS: GABAPENTIN 100 MG CAPSULE PO SCH (21:00)
[2023-10-02] MEDS: INSULIN HUMULIN R 100 UNIT/ML 3ML SQ SCH (21:00)
[2023-10-02] MEDS: DOCUSATE SODIUM 100 MG CAP PO SCH (21:00)
[2023-10-02] MEDS ORDERED: ALBUTEROL INHALER 90MCG/INH IH PRN (22:00)
[2023-10-02] MEDS: CEFAZOLIN SODIUM 1 GM VIAL IVPB SCH (23:46)
[2023-10-03] VITALS (20 sets, daily range): BP systolic 100–136; BP diastolic 36–75; PULSE 82–103; RESP 16–27; O2SAT 93–99
[2023-10-03] MEDS: IPRATROPIUM/ALBUTEROL SULFATE 3 ML SOLUTION IH SCH (01:50)
[2023-10-03 05:12] LABS: HEMATOCRIT 28.7 % (36-48); MEAN CORPUSCULAR HEMOGLOBIN 24.7 pg (27.0-33.0); MEAN CORPUSCULAR HGB CONC 30.7 g/dL (32.0-36.0); MEAN CORPUSCULAR VOLUME 80.6 fL (79-99); RED BLOOD CELL COUNT(AUTO) 3.56 MIL/uL (4.00-5.50); RED CELL DISTRIBUTION WIDTH 18.7 % (11.0-15.5); WHITE BLOOD COUNT (AUTO) 14.7 K/uL (4.8-10.8)
[2023-10-03 05:21] LABS: HEMOGLOBIN A1C 6.2 % (4.0-6.0)
[2023-10-03 05:35] LABS: CREATININE 0.8 mg/dL (0.5-1.5)
[2023-10-03 06:31] LABS: SARS-CoV-2, RNA, NAAT NEGATIVE SARS CoV-2 (NEGATIVE)
[2023-10-03 06:32] LABS: INFLUENZA TYPE A Negative For Type A (NEGATIVE); INFLUENZA TYPE B Negative For Type B (NEGATIVE)
[2023-10-03 08:44] LABS: ABG BASE EXCESS -2.9 mmol/L (-2.0-3.0); ABG HCO3 20.8 mmol/L (21.0-28.0); ABG PCO2 33 mmHg (32-45); ABG PH 7.412 (7.35-7.450); PO2, ARTERIAL BG 72.9 mmHg (83.0-108.0); VENT MODE, BG NC (ROOM AIR)
[2023-10-03] MEDS: ASPIRIN 325MG EC TAB PO SCH (09:43)
[2023-10-03] MEDS: METOPROLOL TARTRATE 25 MG TAB PO SCH (09:43)
[2023-10-03] MEDS: VENLAFAXINE HCL 75 MG TAB PO SCH (09:43)
[2023-10-03] MEDS: FUROSEMIDE 20 MG TABLET PO SCH (09:43)
[2023-10-03] MEDS: PANTOPRAZOLE 40 MG TAB DR PO SCH (09:43)
[2023-10-03] MEDS: LOSARTAN 100 MG TABLET PO SCH (09:43)
[2023-10-03] MEDS: POLYETHYLENE GLYCOL 3350 17 GM POWD.PACK PO SCH (09:45)
[2023-10-03] MEDS: TRAMADOL HCL 50 MG TABLET PO PRN (09:57)
[2023-10-03] MEDS: CARIPRAZINE HYDROCHLORIDE 1.5 MG PO SCH (10:18)
[2023-10-03] MEDS: ***HM***(Fluticasone/Umeclidin/Vilanter (Trelegy Ellipta 100-62.5- IH SCH (10:18)
[2023-10-03] MEDS: CLINDAMYCIN 150 MG CAP PO SCH (12:57)
[2023-10-03] MEDS: HYDROCODONE/ACETAMINOPHEN 5/325 MG TAB PO PRN (12:58)
[2023-10-03] MEDS: IPRATROPIUM/ALBUTEROL SULFATE 3 ML SOLUTION IH ONE (18:47)
[2023-10-03] MEDS: QUETIAPINE FUMARATE 25 MG TAB PO SCH (19:24)
[2023-10-04] VITALS (11 sets, daily range): BP systolic 95–123; BP diastolic 35–59; PULSE 80–107; RESP 18–22; O2SAT 88–98
[2023-10-04] MEDS ORDERED: CLIN-26 PO (12:07)
[2023-10-04] MEDS ORDERED: GABA100C PO (13:26)
[2023-10-04] MEDS ORDERED: CYCL-309 PO (13:26)
[2023-10-04] MEDS ORDERED: HYDR-4060 PO (13:26)
[2023-10-04] MEDS ORDERED: ASPI-891 PO (13:26)
[2023-10-04] MEDS ORDERED: DOCU-116 PO (13:26)
[2023-10-04] MEDS ORDERED: HYDROCODONE/ACETAMINOPHEN 5/325 MG TAB PO PRN (19:30)
[2023-10-05] MEDS ORDERED: BISACODYL 10 MG SUPP.RECT RC PRN (19:30)
== END 2023-10-04 19:00 | disposition home health service (06) ==
LOC: DAH 08:40 → DAHIP 08:41 → DAH 08:41 → EDSTATUS 17:25 → 4CH 21:45
PROVIDERS: ADMIT Student in an Organized Health Care Education/Training Program; ATTEND Student in an Organized Health Care Education/Training Program
DX: M17.12 Unilateral primary osteoarthritis, left knee (principal); Z20.822 Contact with and (suspected) exposure to COVID-19; J95.821 Acute postprocedural respiratory failure; J44.9 Chronic obstructive pulmonary disease, unspecified; N30.00 Acute cystitis without hematuria; G89.18 Other acute postprocedural pain; I10 Essential (primary) hypertension; E66.01 Morbid (severe) obesity due to excess calories; D62 Acute posthemorrhagic anemia; K21.9 Gastro-esophageal reflux disease without esophagitis; F41.9 Anxiety disorder, unspecified; F32.A Depression, unspecified; E78.5 Hyperlipidemia, unspecified; J98.11 Atelectasis; F17.210 Nicotine dependence, cigarettes, uncomplicated; Z68.42 Body mass index [BMI] 45.0-49.9, adult; Z86.2 Personal history of diseases of the blood and blood-forming organs and certain disorders involving the immune mechanism
CPT/HCPCS: 82040; 80048 ×2; 85025; 85610; 85730; 87077; 87088; 87186; 84134; 86140; 81001; 36415 ×2; 93005; 87641; 96365; 64447; 36600 ×2; 27447; 82435; 82947; 84132; 84295; 82803 ×2; 85018; 83605; 71045; 73552; 73560; 94660 ×2; 94640 ×10; 96366; 96375; 83036; 83880; 85027; 87804 ×2; 82948 ×7; 87635; 97161; 97116 ×4; 97530 ×5; 94760 ×2; G0378 ×40; A4649 ×5; A4600; G0168; A4663; J7030; A4215 ×2; J7120; J3010 ×5; J0690 ×4; J3490 ×8; J1100; J0330; J2001; J2250; J2704 ×2; J2405; J1885 ×3; J2710; J2795 ×2; J2371; C1713 ×2; C1776 ×2; A4930; A6255; A5120; A4223; A4222; A4221

== ENCOUNTER 2024-04-12 14:11 | Emergency (ER) | payer OTHER, MEDICARE ==
[~2024-04-12] VITALS: Ht 149.9 cm; Wt 90.7 kg
[~2024-04-12 14:11] MED LIST changes: -AEC81 PO; +ASPI-891 PO; +CLIN-26 PO; +CYCL-309 PO; +DOCU-116 PO; -ESOM40CA54 PO; +ESOM40CA66 PO; +GABA100C PO; +HYDR-4060 PO; -LORA-192 PO
[2024-04-12] MEDS ORDERED: ATROPINE 1MG SYG IVP ONE ×2 (14:12→17:32)
[2024-04-12 14:31] VITALS: TEMP 97.9; O2SAT 96
[2024-04-12 14:50] LABS: ABG BASE EXCESS -6.5 mmol/L (-2.0-3.0); ABG HCO3 15.9 mmol/L (21.0-28.0); ABG OXYGEN SATURATION 93.9 % (94.0-98.0); ABG PCO2 23 mmHg (32-45); CARBON MONOXIDE 0.3 % (0.5-1.5); HHb 6.1; PO2, ARTERIAL BG 72.2 mmHg (83.0-108.0); VENT MODE, BG RA (ROOM AIR)
[2024-04-12 14:56] LABS: BASOPHILS # (AUTO) 0.11 K/uL (0.00-0.20); BASOPHILS % (AUTO) 0.6 % (0.0-5.0); EOSINOPHILS # (AUTO) 0.48 K/uL (0.00-0.70); EOSINOPHILS % (AUTO) 2.5 % (0.0-8.0); HEMATOCRIT 31.6 % (36-48); IMMATURE GRANULOCYTE ABSOLUTE 0.96 K/uL (0-1); LYMPHOCYTES # (AUTO) 4.4 K/uL (1.0-4.8); LYMPHOCYTES % (AUTO) 22.9 % (21.0-51.0); MEAN CORPUSCULAR HEMOGLOBIN 34.4 pg (27.0-33.0); MEAN CORPUSCULAR HGB CONC 33.2 g/dL (32.0-36.0); MEAN CORPUSCULAR VOLUME 103.6 fL (79-99); MONOCYTES # (AUTO) 1.3 K/uL (0.1-1.0); MONOCYTES % (AUTO) 6.7 % (3.0-13.0); NEUTROPHILS # (AUTO) 11.9 K/uL (1.8-7.7); NEUTROPHILS % (AUTO) 62.3 % (40.0-77.0); NUCLEATED RED BLOOD CELLS 0.2 % (0.0-0.19); PLATELET COUNT (AUTO) 168 K/uL (130-400); RED BLOOD CELL COUNT(AUTO) 3.05 MIL/uL (4.00-5.50); RED CELL DISTRIBUTION WIDTH 15.6 % (11.0-15.5); WHITE BLOOD COUNT (AUTO) 19.1 K/uL (4.8-10.8)
[2024-04-12] MEDS ORDERED: NOREPINEPHRIN 4MG/NS 250ML 250 ML IV SCH (15:00)
[2024-04-12 15:01] VITALS: BP 41/25
[2024-04-12] MEDS: NOREPINEPHRIN 4MG/NS 250ML 250 ML IV ONE (15:01)
[2024-04-12] MEDS: 0.9%NACL 1000ML 1,000 ML IV SCH (15:02)
[2024-04-12 15:03] LABS: CREATININE 1.3 mg/dL (0.5-1.0); POTASSIUM 3.7 mmol/L (3.5-5.1)
[2024-04-12] MEDS: LACTATED RINGERS 1000ML 1,000 ML IV SCH (15:04)
[2024-04-12 15:06] LABS: INR 1.32 (0.85-1.15)
[2024-04-12 15:07] LABS: PARTIAL THROMBOPLASTIN TIME 31.5 SEC (26.3-35.5)
[2024-04-12] MEDS ORDERED: ALBUMIN (HUMAN) 25% 100 ML IV ONE (16:06)
[2024-04-12] MEDS ORDERED: EPINEPHrine 1 MG/ML 30ML VIAL IJ ONE (16:09)
[2024-04-12 16:16] VITALS: PULSE 158; O2SAT 100
[2024-04-12 16:58] VITALS: PULSE 55; RESP 26; O2SAT 100
[2024-04-12] MEDS ORDERED: ETOMIDATE 20MG VIAL IVP ONE (17:30)
[2024-04-12] MEDS ORDERED: proPOFol 1000 MG/100 ML IV PRN (17:30)
[2024-04-12] MEDS ORDERED: EPINEPHrine 1MG/10ML(1:10,000) 0.1 MG/ML SYG ONE (17:44)
== END 2024-04-12 22:00 ==
LOC: EDH 14:11
DX: T79.4XXA Traumatic shock, initial encounter (principal); S20.212A Contusion of left front wall of thorax, initial encounter; S30.1XXA Contusion of abdominal wall, initial encounter; E87.20 Acidosis, unspecified; J44.9 Chronic obstructive pulmonary disease, unspecified; F41.9 Anxiety disorder, unspecified; F17.200 Nicotine dependence, unspecified, uncomplicated; Z79.82 Long term (current) use of aspirin; Z79.899 Other long term (current) drug therapy; V89.2XXA Person injured in unspecified motor-vehicle accident, traffic, initial encounter; Y93.89 Activity, other specified; Y92.89 Other specified places as the place of occurrence of the external cause; Y99.8 Other external cause status
CPT/HCPCS: 36556; 82947; 80048; 82803; 85025; 85610; 85730; 86850; 86900; 86901; 86923 ×4; 83605 ×2; 36415; 70450; 71250; 74176; 93306; 99291; 99292; 92950 ×2; 31500 ×2; 36430; 96360; 96361; 93005; 36600; 82435; 84132; 84295; 85018; 82948; 71045 ×3; P9016 ×2; J3490 ×4; J7120; J7030; J0171 ×3; J0461 ×2; P9046; A9900 ×2; 94002